=== PATIENT | male | born 1990 | race Caucasian/White ===

== ENCOUNTER 2020-04-10 21:46 | Emergency (ER) | payer SELFPAY ==
[~2020-04-10] VITALS: Ht 182.9 cm; Wt 113.4 kg
[2020-04-11 04:18] VITALS: BP 150/98
[2020-04-11] MEDS ORDERED: LORazepam 2MG/ML-1ML VIAL ONE (04:25)
[2020-04-11] MEDS ORDERED: LORazepam 2MG/ML-1ML VIAL IV ONE (04:45)
[2020-04-11 05:23] LABS: Basophils # (auto) 0.1 10 ^3/uL (0-0.2); Basophils % (auto) 0.5 % (0.0-2.0); Eosinophils # (auto) 0.4 10 ^3/uL (0-0.8); Hematocrit 46.1 % (41.0-53.0); Hemoglobin 15.8 g/dL (13.5-17.5); Lymphocytes # (auto) 3.6 10 ^3/uL (0.4-5.4); Lymphocytes % (auto) 29.2 % (10.0-50.0); Mean Corpuscular Hemoglobin 30.5 pg (28.0-32.0); Mean Corpuscular Hgb Conc. 34.3 g/dL (32.0-36.0); Mean Corpuscular Volume 88.9 fL (80.0-100.0); Monocytes # (auto) 1.5 10 ^3/uL (0-1.3); Monocytes % (auto) 11.7 % (0.0-12.0); Neutrophils # (auto) 6.9 10 ^3/uL (1.6-8.6); Neutrophils % (auto) 55.6 % (37.0-80.0); Nucleated Red Blood Cells % 0.1 %; Platelet Count (auto) 204 10^3/uL (140-450); Red Blood Cells 5.19 10^6/uL (4.5-5.90); White Blood Cell 12.5 10^3/uL (4.4-10.8)
[2020-04-11 05:43] LABS: Salicylate 2.8 mg/dL (2.8-20.0)
[2020-04-11 05:45] LABS: Acetaminophen < 2.0 ug/mL (10-30)
[2020-04-11 05:46] LABS: Chloride 106 mmol/L (98-107); Potassium 3.4 mmol/L (3.5-5.1); Sodium 136 mmol/L (136-145)
[2020-04-11 05:57] LABS: Alanine Aminotransferase 35 U/L (16-61); Albumin 3.6 g/dL (3.4-5.0); Alkaline Phosphatase 43 U/L (45-117); Anion Gap 7 (5-15); Aspartate Aminotransferase 58 U/L (15-37); BUN/Creatinine Ratio 16.3; Bilirubin, Total 0.5 mg/dL (0.2-1.0); Blood Alcohol < 3.0 mg/dL (0-5); Blood Urea Nitrogen 16 mg/dL (7-18); Calcium 9.2 mg/dL (8.5-10.1); Carbon Dioxide 23 mmol/L (21-32); GFR African American 115 mL/min; GFR Non-African American 95 mL/min; Glucose 100 mg/dL (74-106); Total Protein 7.3 g/dL (6.4-8.2)
[2020-04-11 08:52] LABS: INR 1.01 (0.9-1.15); Partial Thromboplastin Time 27.6 sec (23.0-31.2)
== END 2020-04-11 09:18 | disposition home or self-care (01) ==
LOC: EDBD 21:46 → ER 21:53
DX: S09.90XA Unspecified injury of head, initial encounter (principal); X58.XXXA Exposure to other specified factors, initial encounter; Y93.89 Activity, other specified; Y92.89 Other specified places as the place of occurrence of the external cause; Y99.8 Other external cause status
CPT/HCPCS: 36415; 70450; 71045; 72125; 80053; 80320; 80329; 83605; 85025; 85610; 85730; 96374; 99285; J2060

== ENCOUNTER 2020-05-24 20:18 | Emergency (ER) | payer BC, OTHER ==
[~2020-05-24] VITALS: Ht 188 cm; Wt 124.7 kg
[2020-05-24 20:29] VITALS: BP 155/95
[2020-05-24] MEDS ORDERED: BACITRACIN TOP OINT 1 UD PKG TOP ONE (23:00)
== END 2020-05-24 23:11 | disposition home or self-care (01) ==
LOC: ER 20:18
DX: S02.2XXA Fracture of nasal bones, initial encounter for closed fracture (principal); S01.111A Laceration without foreign body of right eyelid and periocular area, initial encounter; W22.8XXA Striking against or struck by other objects, initial encounter; Y93.89 Activity, other specified; Y92.89 Other specified places as the place of occurrence of the external cause; Y99.8 Other external cause status
CPT/HCPCS: 12013; 70450; 70486; 72125; 99285; J2001

== ENCOUNTER 2021-06-01 16:38 | Emergency (ER) | payer BC, MEDICAID ==
[~2021-06-01] VITALS: Ht 188 cm; Wt 106.6 kg
[2021-06-01 16:38] VITALS: BP 140/84
[2021-06-01 17:43] LABS: Basophils # (auto) 0.1 10 ^3/uL (0-0.2); Eosinophils # (auto) 0.3 10 ^3/uL (0-0.8)
[2021-06-01 17:45] LABS: Basophils % (auto) 1.1 % (0.0-2.0); Hematocrit 50.4 % (41.0-53.0); Hemoglobin 18.1 g/dL (13.5-17.5); Lymphocytes # (auto) 2.2 10 ^3/uL (0.4-5.4); Lymphocytes % (auto) 20.8 % (10.0-50.0); Mean Corpuscular Hemoglobin 31.3 pg (28.0-32.0); Mean Corpuscular Hgb Conc. 35.8 g/dL (32.0-36.0); Mean Corpuscular Volume 87.4 fL (80.0-100.0); Monocytes # (auto) 0.8 10 ^3/uL (0-1.3); Monocytes % (auto) 7.9 % (0.0-12.0); Neutrophils % (auto) 67.2 % (37.0-80.0); Nucleated Red Blood Cells % 0.3 %; Red Blood Cells 5.77 10^6/uL (4.5-5.90); Red Cell Distribution Width 13.2 % (11.8-14.3); White Blood Cell 10.4 10^3/uL (4.4-10.8)
[2021-06-01 18:06] LABS: Alanine Aminotransferase 44 U/L (16-61); Albumin 4.1 g/dL (3.4-5.0); Anion Gap 9 (5-15); Aspartate Aminotransferase 20 U/L (15-37); BUN/Creatinine Ratio 9.2; Blood Alcohol < 3.0 mg/dL (0-5); Blood Urea Nitrogen 9 mg/dL (7-18); Calcium 9.2 mg/dL (8.5-10.1); Carbon Dioxide 21 mmol/L (21-32); Chloride 107 mmol/L (98-107); GFR African American 114 mL/min; GFR Non-African American 94 mL/min; Glucose 103 mg/dL (74-106); Potassium 3.9 mmol/L (3.5-5.1); Salicylate 5.1 mg/dL (2.8-20.0); Sodium 137 mmol/L (136-145)
[2021-06-01 18:09] LABS: Alkaline Phosphatase 43 U/L (45-117); Bilirubin, Total 0.7 mg/dL (0.2-1.0); Total Protein 7.8 g/dL (6.4-8.2)
[2021-06-01 18:14] LABS: Acetaminophen < 2.0 ug/mL (10-30)
== END 2021-06-01 18:12 | disposition left against medical advice (07) ==
LOC: EDBD 16:38 → ER 16:38
DX: R55 Syncope and collapse (principal); R41.0 Disorientation, unspecified; F15.10 Other stimulant abuse, uncomplicated; F14.10 Cocaine abuse, uncomplicated
CPT/HCPCS: 36415; 70450; 80053; 80320; 80329; 85025; 93005